=== PATIENT | male | born 1955 | race Caucasian/White ===

== ENCOUNTER 2018-07-30 08:32 | Outpatient (REF) | payer BC, SELFPAY | END 2018-07-30 08:52 | LOC: NCHCN 08:32 | PROVIDERS: PCP Family Medicine; Visit Provider Family Medicine | DX: R97.20 Elevated prostate specific antigen [PSA] (principal) | CPT/HCPCS: 84154 ==

== ENCOUNTER 2019-01-28 16:15 | Outpatient (REF) | payer BC, SELFPAY ==
[2019-01-28 21:58] LABS: Anion Gap 6.2 mmol/L (3-11); BUN 21 mg/dL (7-18); CO2 29.8 mmol/L (21.0-32.0); CREATININE 0.93 mg/dL (0.70-1.30); Chloride 104 mmol/L (98-107); Glucose 93 mg/dL (70-100); Potassium 4.8 mmol/L (3.5-5.1); Sodium 140 mmol/L (136-145)
== END 2019-01-28 16:35 ==
LOC: NCHCN 16:15
PROVIDERS: PCP Family Medicine; Visit Provider Registered Nurse
DX: R97.20 Elevated prostate specific antigen [PSA] (principal); I10 Essential (primary) hypertension
CPT/HCPCS: 80048; 84154

== ENCOUNTER 2020-03-29 08:59 | Outpatient (REF) | payer BC, SELFPAY ==
[2020-03-29 21:40] LABS: ALT 31 U/L (16-63); AST 23 U/L (15-37); Albumin 3.9 g/dL (3.4-5.0); Alkaline Phosphatase 60 U/L (46-116); Anion Gap 7.9 mmol/L (3-11); BUN 18 mg/dL (7-18); CO2 28.1 mmol/L (21.0-32.0); CREATININE 0.98 mg/dL (0.70-1.30); Calcium 8.7 mg/dL (8.5-10.1); Calculated LDL 142 mg/dL (<100); Chloride 107 mmol/L (98-107); Cholesterol 207 mg/dL (<200); Glucose 94 mg/dL (74-106); HDL Cholesterol 53 mg/dL (40-60); Potassium 4.3 mmol/L (3.5-5.1); Sodium 143 mmol/L (136-145); Total Protein 6.8 g/dL (6.4-8.2); Triglyceride 63 mg/dL (<150)
[2020-03-30 04:18] LABS: Vitamin D 25 Total 45.8 ng/ml (30-100)
== END 2020-03-29 09:19 ==
LOC: NCHCN 08:59
PROVIDERS: PCP Family Medicine; Visit Provider Family Medicine
DX: Z00.00 Encounter for general adult medical examination without abnormal findings (principal); I10 Essential (primary) hypertension; E80.4 Gilbert syndrome
CPT/HCPCS: 80053; 80061; 82306

== ENCOUNTER 2020-07-24 13:26 | Outpatient (REF) | payer BC, SELFPAY ==
[2020-07-27 20:09] LABS: Patient Race White; SARS-CoV-2 RNA Undetected (Undetected); SARS-CoV-2 Specimen Source Nasal
== END 2020-07-24 13:46 ==
LOC: NCHCN 13:26
PROVIDERS: PCP Family Medicine; Visit Provider Family Medicine
DX: Z20.828 Contact with and (suspected) exposure to other viral communicable diseases (principal)
CPT/HCPCS: U0003

== ENCOUNTER 2020-08-03 14:27 | Outpatient (REF) | payer BC, SELFPAY ==
[2020-08-09 16:06] LABS: PSA, Screening 3.1 ng/mL (0-4.5)
== END 2020-08-03 14:47 ==
LOC: NCHCN 14:27
PROVIDERS: PCP Family Medicine; Visit Provider Family Medicine
DX: R97.20 Elevated prostate specific antigen [PSA] (principal); Z80.42 Family history of malignant neoplasm of prostate
CPT/HCPCS: 84153

== ENCOUNTER 2021-03-23 13:47 | Outpatient (REF) | payer MEDICARE, BC, SELFPAY ==
[2021-03-23 20:52] LABS: ALT 38 U/L (16-63); AST 26 U/L (15-37); Albumin 3.8 g/dL (3.4-5.0); Alkaline Phosphatase 59 U/L (46-116); Anion Gap 6.4 mmol/L (3-11); BUN 24 mg/dL (7-18); Bilirubin, Total 0.7 mg/dL (0.2-1.0); CO2 28.6 mmol/L (21.0-32.0); CREATININE 0.9 mg/dL (0.70-1.30); Calcium 8.7 mg/dL (8.5-10.1); Calculated LDL 126 mg/dL (<100); Chloride 107 mmol/L (98-107); Cholesterol 188 mg/dL (<200); Glucose 87 mg/dL (74-106); HDL Cholesterol 55 mg/dL (40-60); Potassium 4.2 mmol/L (3.5-5.1); Sodium 142 mmol/L (136-145); Total Protein 6.8 g/dL (6.4-8.2); Triglyceride 37 mg/dL (<150)
[2021-03-26 10:12] LABS: PSA, Screening 3.7 ng/mL (0.0-4.5)
== END 2021-03-23 13:48 | disposition home or self-care (01) ==
LOC: NCHCN 13:47
PROVIDERS: PCP Family Medicine; Visit Provider Family Medicine
DX: Z00.00 Encounter for general adult medical examination without abnormal findings (principal); Z13.220 Encounter for screening for lipoid disorders; Z12.5 Encounter for screening for malignant neoplasm of prostate; R97.20 Elevated prostate specific antigen [PSA]
CPT/HCPCS: 80053; 80061; 84153

== ENCOUNTER 2021-05-30 12:43 | Outpatient (REF) | payer MEDICARE, BC, SELFPAY ==
[2021-05-30 14:08] LABS: ALT 22 U/L (16-63); AST 23 U/L (15-37); Alkaline Phosphatase 69 U/L (46-116); Bilirubin, Total 0.6 mg/dL (0.2-1.0); Calculated LDL 74 mg/dL (<100); Cholesterol 140 mg/dL (<200); HDL Cholesterol 58 mg/dL (40-60); Triglyceride 41 mg/dL (<150)
[2021-05-30 14:21] LABS: Bilirubin, Direct 0.1 mg/dL (0.0-0.2)
== END 2021-05-30 12:44 | disposition home or self-care (01) ==
LOC: NCHCN 12:43
PROVIDERS: PCP Family Medicine; Visit Provider Family Medicine
DX: I10 Essential (primary) hypertension (principal); E80.4 Gilbert syndrome; Z13.6 Encounter for screening for cardiovascular disorders
CPT/HCPCS: 80061; 80076

== ENCOUNTER 2021-10-02 18:43 | Outpatient (REF) | payer MEDICARE, SELFPAY ==
[2021-10-04 10:34] LABS: COVID-19 RT-PCR UVMMC Result Negative (Negative)
== END 2021-10-02 18:44 | disposition home or self-care (01) ==
LOC: NCHCN 18:43
PROVIDERS: PCP Family Medicine; Visit Provider Family Medicine
DX: Z20.822 Contact with and (suspected) exposure to COVID-19 (principal); J06.9 Acute upper respiratory infection, unspecified
CPT/HCPCS: U0003; U0005

== ENCOUNTER 2022-03-26 18:20 | Outpatient (REF) | payer MEDICARE, SELFPAY ==
[2022-03-26 20:20] LABS: ALT 34 U/L (16-63); AST 25 U/L (15-37); Albumin 3.9 g/dL (3.4-5.0); Alkaline Phosphatase 72 U/L (46-116); Anion Gap 7.4 mmol/L (3-11); BUN 18 mg/dL (7-18); Bilirubin, Total 0.9 mg/dL (0.2-1.0); CO2 28.6 mmol/L (21.0-32.0); CREATININE 0.9 mg/dL (0.70-1.30); Calcium 8.8 mg/dL (8.5-10.1); Chloride 105 mmol/L (98-107); Glucose 97 mg/dL (74-106); Potassium 4.6 mmol/L (3.5-5.1); Sodium 141 mmol/L (136-145); Total Protein 6.9 g/dL (6.4-8.2)
[2022-03-26 20:37] LABS: Calculated LDL 58 mg/dL (<100); Cholesterol 135 mg/dL (<200); HDL Cholesterol 62 mg/dL (40-60); Triglyceride 76 mg/dL (<150)
[2022-03-27 18:02] LABS: PSA, Screening 4.9 ng/mL (<=4.5)
[2022-03-28 05:13] LABS: Vitamin D 25 Total 33.9 ng/mL (30-100)
== END 2022-03-26 18:21 | disposition home or self-care (01) ==
LOC: NCHCN 18:20
PROVIDERS: PCP Family Medicine; Visit Provider Family Medicine
DX: R97.20 Elevated prostate specific antigen [PSA] (principal); Z12.5 Encounter for screening for malignant neoplasm of prostate; Z13.21 Encounter for screening for nutritional disorder
CPT/HCPCS: 80053; 80061; 82306; 84153

== ENCOUNTER 2022-05-13 15:04 | Outpatient (REF) | payer MEDICARE, SELFPAY ==
[2022-05-14 19:03] LABS: PSA, Diagnostic 4.9 ng/mL (<=4.5)
[2022-05-16 11:10] LABS: Free PSA/PSA Ratio 0.16 ratio
== END 2022-05-13 15:05 | disposition home or self-care (01) ==
LOC: LBN 15:04
PROVIDERS: PCP Family Medicine; Visit Provider Urology
DX: R97.20 Elevated prostate specific antigen [PSA] (principal)
CPT/HCPCS: 84153; 84154

== ENCOUNTER 2023-03-27 10:06 | Outpatient (REF) | payer MEDICARE, BC, SELFPAY ==
[2023-03-27 14:46] LABS: ALT 37 U/L (16-63); AST 27 U/L (15-37); Albumin 3.8 g/dL (3.4-5.0); Alkaline Phosphatase 76 U/L (46-116); BUN 21 mg/dL (7-18); Bilirubin, Total 0.7 mg/dL (0.2-1.0); CREATININE 0.8 mg/dL (0.70-1.30); Calcium 8.6 mg/dL (8.5-10.1); Chloride 108 mmol/L (98-107); Glucose 92 mg/dL (74-106); Potassium 4.1 mmol/L (3.5-5.1); Sodium 143 mmol/L (136-145); Total Protein 6.8 g/dL (6.4-8.2)
[2023-03-27 14:59] LABS: Calculated LDL 87 mg/dL (<100); Cholesterol 144 mg/dL (<200); HDL Cholesterol 52 mg/dL (40-60); Triglyceride 26 mg/dL (<150)
== END 2023-03-27 10:07 | disposition home or self-care (01) ==
LOC: NCHCN 10:06
PROVIDERS: PCP Family Medicine; Visit Provider Family Medicine
DX: E78.5 Hyperlipidemia, unspecified (principal); I10 Essential (primary) hypertension; E55.9 Vitamin D deficiency, unspecified
CPT/HCPCS: 80053; 80061; 82306

== ENCOUNTER 2023-05-28 08:55 | Outpatient (REF) | payer MEDICARE, BC, SELFPAY ==
[2023-05-28 22:54] LABS: PSA, Diagnostic <0.1 ng/mL (<=4.5)
== END 2023-05-28 08:56 | disposition home or self-care (01) ==
LOC: LBN 08:55
PROVIDERS: PCP Family Medicine; Visit Provider Urology
DX: C61 Malignant neoplasm of prostate (principal)
CPT/HCPCS: 84153

== ENCOUNTER 2023-08-25 11:59 | Outpatient (REF) | payer MEDICARE, BC, SELFPAY ==
[2023-08-25 23:18] LABS: PSA, Diagnostic <0.1 ng/mL (<=4.5)
== END 2023-08-25 12:00 | disposition home or self-care (01) ==
LOC: LBN 11:59
PROVIDERS: PCP Family Medicine; Visit Provider Urology
DX: C61 Malignant neoplasm of prostate (principal)
CPT/HCPCS: 84153

== ENCOUNTER 2023-12-05 16:11 | Outpatient (REF) | payer MEDICARE, BC, SELFPAY ==
[2023-12-08 08:14] LABS: PSA, Diagnostic <0.1 ng/mL (<=4.5)
== END 2023-12-05 16:12 | disposition home or self-care (01) ==
LOC: LBN 16:11
PROVIDERS: Urology; PCP Family Medicine; Referring Provider Family Medicine; Visit Provider Family Medicine
DX: C61 Malignant neoplasm of prostate (principal)
CPT/HCPCS: 84153

== ENCOUNTER 2024-02-25 11:41 | Outpatient (REF) | payer MEDICARE, BC, SELFPAY ==
[2024-02-25 23:31] LABS: PSA, Diagnostic <0.1 ng/mL (<=4.5)
== END 2024-02-25 11:42 | disposition home or self-care (01) ==
LOC: LBN 11:41
PROVIDERS: PCP Family Medicine; Visit Provider Urology
DX: C61 Malignant neoplasm of prostate (principal)
CPT/HCPCS: 84153

== ENCOUNTER 2024-04-06 11:37 | Outpatient (REF) | payer MEDICARE, BC, SELFPAY ==
[2024-04-06 16:02] LABS: Absolute Basophil Count 0.01 10^3/uL (0.0-0.2); Absolute Lymphocyte Count 1.07 10^3/uL (1.2-3.4); Absolute Monocyte Count 0.32 10^3/uL (0.1-0.8); Absolute Neutrophil Count 2.42 10^3/uL (1.2-6.7); Basophils % 0.3 %; HCT 44.7 % (40.0-50.0); HGB 14.9 g/dL (13.5-17.5); MCH 32.3 pg (27.0-33.0); MCHC 33.3 % (32.0-36.0); MCV 97 fL (80-95); Monocytes % 8.4 %; Neutrophils % 63.3 %; RBC 4.62 10^6/uL (4.36-5.78); RDW 12.4 % (11.8-14.1); RDW-SD 43.9 fL; WBC 3.82 10^3/uL (4.4-10.8)
[2024-04-06 16:15] LABS: Diff Comment PLT Morph Reviewed; RBC Morphology Normal
[2024-04-06 16:51] LABS: ALT 39 U/L (16-63); AST 31 U/L (15-37); Alkaline Phosphatase 66 U/L (46-116); Anion Gap 9.6 mmol/L (3-11); BUN 19 mg/dL (7-18); Bilirubin, Total 0.87 mg/dL (0.2-1.0); CO2 25.4 mmol/L (21.0-32.0); CREATININE 0.9 mg/dL (0.70-1.30); Calcium 9.1 mg/dL (8.5-10.1); Calculated LDL 88 mg/dL (<100); Chloride 107 mmol/L (98-107); Cholesterol 155 mg/dL (<200); Estimated GFR 93.03 (mL/min/1.73m2); Glucose 95 mg/dL (74-106); HDL Cholesterol 59 mg/dL (40-60); Potassium 4.7 mmol/L (3.5-5.1); Sodium 142 mmol/L (136-145); Total Protein 7.5 g/dL (6.4-8.2); Triglyceride 44 mg/dL (<150); Vitamin D 25 Total 60.5 ng/mL (30-100)
== END 2024-04-06 11:38 | disposition home or self-care (01) ==
LOC: NCHCN 11:37
PROVIDERS: PCP Family Medicine; Visit Provider Family Medicine
DX: E78.5 Hyperlipidemia, unspecified (principal); E55.9 Vitamin D deficiency, unspecified; R23.3 Spontaneous ecchymoses
CPT/HCPCS: 80053; 80061; 82306; 85025

== ENCOUNTER 2024-06-11 18:12 | Outpatient (REF) | payer MEDICARE, BC, SELFPAY ==
[2024-06-11 15:25] LABS: Vitamin B12 323 pg/mL (193-986)
[2024-06-11 15:33] LABS: Folate > 20.0 ng/mL (8.6-20.0)
[2024-06-11 22:56] LABS: PSA, Diagnostic <0.1 ng/mL (<=4.5)
== END 2024-06-11 18:13 | disposition home or self-care (01) ==
LOC: NCHCN 18:12
PROVIDERS: Physician Assistant; PCP Family Medicine; Visit Provider Family Medicine
DX: C61 Malignant neoplasm of prostate (principal)
CPT/HCPCS: 82607; 82746; 84153

== ENCOUNTER 2024-06-29 15:23 | Outpatient (REF) | payer MEDICARE, BC, SELFPAY ==
[2024-06-29 21:26] LABS: Abs Immature Grans 0.01 10^3/uL (0.0-0.06); Absolute Basophil Count 0.01 10^3/uL (0.0-0.2); Absolute Lymphocyte Count 1.29 10^3/uL (1.2-3.4); Absolute Monocyte Count 0.35 10^3/uL (0.1-0.8); Absolute Neutrophil Count 2.99 10^3/uL (1.2-6.7); Basophils % 0.2 %; HGB 13.5 g/dL (13.5-17.5); Immature Grans % 0.2 %; Lymphocytes % 27.7 %; MCHC 33.8 % (32.0-36.0); MCV 98 fL (80-95); MPV 12.1 fL (8.0-11.0); Monocytes % 7.5 %; Neutrophils % 64.4 %; Platelet Count 118 10^3/uL (130-400); RBC 4.09 10^6/uL (4.36-5.78); RDW 12.2 % (11.8-14.1); RDW-SD 44.4 fL; WBC 4.65 10^3/uL (4.4-10.8)
== END 2024-06-29 15:24 | disposition home or self-care (01) ==
LOC: NCHCN 15:23
PROVIDERS: PCP Family Medicine; Visit Provider Family Medicine
DX: D75.89 Other specified diseases of blood and blood-forming organs (principal)
CPT/HCPCS: 85025

== ENCOUNTER 2024-09-06 16:12 | Outpatient (REF) | payer MEDICARE, BC, SELFPAY ==
[2024-09-07 22:41] LABS: PSA, Diagnostic <0.1 ng/mL (<=4.5)
== END 2024-09-06 16:13 | disposition home or self-care (01) ==
LOC: NCHCN 16:12
PROVIDERS: Physician Assistant; PCP Family Medicine; Visit Provider Family Medicine
DX: C61 Malignant neoplasm of prostate (principal)
CPT/HCPCS: 84153

== ENCOUNTER 2024-12-03 11:14 | Outpatient (REF) | payer MEDICARE, BC, SELFPAY ==
[2024-12-06 08:46] LABS: PSA, Diagnostic <0.1 ng/mL (<=4.5)
== END 2024-12-03 11:15 | disposition home or self-care (01) ==
LOC: LBN 11:14
PROVIDERS: PCP Family Medicine; Visit Provider Physician Assistant
DX: C61 Malignant neoplasm of prostate (principal)
CPT/HCPCS: 84153

== ENCOUNTER 2025-06-13 16:48 | Outpatient (REF) | payer MEDICARE, BC, SELFPAY ==
[2025-06-14 18:59] LABS: PSA, Screening <0.1 ng/mL (<=4.5)
== END 2025-06-13 16:49 | disposition home or self-care (01) ==
LOC: NCHCN 16:48
PROVIDERS: PCP Family Medicine; Visit Provider Family Medicine
DX: C61 Malignant neoplasm of prostate (principal)
CPT/HCPCS: 84153